=== PATIENT | male | born 1955 | race Caucasian/White ===

== ENCOUNTER → 2018-02-01 | Outpatient (CLI) | payer BC ==
[~2018-02-01] MED LIST: CEPH500 PO; HYDACE5 PO
== END | disposition home or self-care (01) ==
LOC: LAB SHORT 10:17 → PLD 10:17
DX: D04.61 Carcinoma in situ of skin of right upper limb, including shoulder (principal); L82.1 Other seborrheic keratosis; L57.8 Other skin changes due to chronic exposure to nonionizing radiation
CPT/HCPCS: 88305

== ENCOUNTER → 2019-09-14 | Outpatient (CLI) | payer MEDICARE | END | disposition home or self-care (01) | LOC: LAB SHORT 11:26 → PLD 11:26 | DX: D09.21 Carcinoma in situ of right eye (principal) | CPT/HCPCS: 88305 ==

== ENCOUNTER → 2020-02-13 | Outpatient (CLI) | payer MEDICARE | END | disposition home or self-care (01) | LOC: LAB SHORT 09:00 | DX: R10.9 Unspecified abdominal pain (principal) | CPT/HCPCS: 87338 ==

== ENCOUNTER → 2022-12-03 | Outpatient (CLI) | payer MEDICARE | END | disposition home or self-care (01) | LOC: LAB 12:17 → LAB SHORT 12:17 | DX: L57.8 Other skin changes due to chronic exposure to nonionizing radiation (principal) | CPT/HCPCS: 88305 ==

== ENCOUNTER 2022-12-30 12:42 | Day surgery (SDC) | payer MEDICARE ==
[~2022-12-30] VITALS: Ht 170.2 cm; Wt 71.6 kg
[2022-12-30] MEDS ORDERED: Prinivil10 MG PO (13:11)
--- NOTE | 2022-12-30 15:27 | NUR ---
[facility]22 [facility]ED[facility] NOT PR[facility]. VITALS STABLE DURING PROCEDURE AND MONITORED BY RN AND MD. AT TIMES WHEN BP WAS ON THE LOWER SIDE, FLUIDS WERE OPENED AND SEDATION HELD AND BP RETURNED TO NORMAL. OXYGEN SATURATION MAINTAINED ABOVE 95% ON 3 LPM OXYGEN. NO COMPLICATIONS DURING PROCEDURE.
[2022-12-30 15:29] VITALS: BP 115/79
--- NOTE | 2022-12-30 15:35 | NUR ---
12/30/22 1535 [facility] Bautista IV REMOVED, SITE WNL, CATH INTACT.
== END 2022-12-30 15:24 | disposition home or self-care (01) ==
LOC: ORSCSDS 12:42
PROVIDERS: Internal Medicine Gastroenterology
PROC: 0DBP8ZX Excision of Rectum, Via Natural or Artificial Opening Endoscopic, Diagnostic (ICD-10-PCS; principal; 2022-12-30 14:00)
PROC: 0DB78ZX Excision of Stomach, Pylorus, Via Natural or Artificial Opening Endoscopic, Diagnostic (ICD-10-PCS; principal; 2022-12-30 14:00)
PROC: 0DB58ZX Excision of Esophagus, Via Natural or Artificial Opening Endoscopic, Diagnostic (ICD-10-PCS; principal; 2022-12-30 14:00)
DX: K22.70 Barrett's esophagus without dysplasia (principal); Z86.010 Personal history of colon polyps; K29.50 Unspecified chronic gastritis without bleeding; R68.81 Early satiety; K57.30 Diverticulosis of large intestine without perforation or abscess without bleeding; K62.1 Rectal polyp; K21.9 Gastro-esophageal reflux disease without esophagitis; Z85.79 Personal history of other malignant neoplasms of lymphoid, hematopoietic and related tissues; K22.2 Esophageal obstruction; Z80.0 Family history of malignant neoplasm of digestive organs
CPT/HCPCS: 88305; 88341; 88342; J2704; J7120